=== PATIENT | female | born 1990 | race African-American/Black ===

== ENCOUNTER 2017-07-10 15:26 | Emergency (ER) | payer MEDICAID ==
[~2017-07-10] VITALS: Ht 160 cm; Wt 53.5 kg
[2017-07-10 15:58] VITALS: BP 140/89
[2017-07-10] MEDS ORDERED: PENICILLIN V POTASSIUM 500 MG TABLET PO ONE ×2 (16:11→16:30)
[2017-07-10] MEDS ORDERED: DEXAMETHASONE SOD PHOSPHATE 10 MG/ML VIAL ONE (16:11)
[2017-07-10] MEDS ORDERED: oxyCODONE/APAP (5/325 MG) 1 UDTAB TABLET ONE (16:11)
[2017-07-10] MEDS ORDERED: DEXAMETHASONE SOD PHOSPHATE 10 MG/ML VIAL MC ONE (16:30)
[2017-07-10] MEDS ORDERED: oxyCODONE/APAP (5/325 MG) 1 UDTAB TABLET PO ONE (16:30)
== END 2017-07-10 16:25 | disposition home or self-care (01) ==
LOC: ER 15:28
DX: K02.9 Dental caries, unspecified (principal); F17.200 Nicotine dependence, unspecified, uncomplicated
CPT/HCPCS: 99283; 99406; A4606; J1100; Z7610

== ENCOUNTER 2018-03-31 11:49 | Emergency (ER) | payer MEDICAID ==
[~2018-03-31] VITALS: Ht 154.9 cm; Wt 47.6 kg
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
[2018-03-31] MEDS ORDERED: IBUPROFEN 600 MG TABLET PO ONE ×2 (12:30→12:33)
[2018-03-31 13:04] VITALS: BP 120/68
== END 2018-03-31 13:05 | disposition home or self-care (01) ==
LOC: ER 11:51
DX: M25.511 Pain in right shoulder (principal)
CPT/HCPCS: 99282; A4606; Z7610

== ENCOUNTER 2018-06-15 17:59 | Emergency (ER) | payer SELFPAY ==
[~2018-06-15] VITALS: Ht 162.6 cm; Wt 52.2 kg
[2018-06-15 17:59] VITALS: BP 130/98
[2018-06-15] MEDS ORDERED: ACETAMINOPHEN ES 500 MG TABLET ONE (18:07)
[2018-06-15] MEDS: ACETAMINOPHEN ES 500 MG TABLET PO ONE (18:12)
== END 2018-06-15 18:13 ==
LOC: ER 18:01
DX: F41.9 Anxiety disorder, unspecified (principal); J45.909 Unspecified asthma, uncomplicated
CPT/HCPCS: A4606; Z7610